=== PATIENT | male | born 1980 | race Native Hawaiian/Other Pacific Islander ===

== ENCOUNTER 2022-03-06 17:03 | Outpatient (CLI) | payer OTHER | END 2022-03-06 19:12 | disposition home or self-care (01) | LOC: RAD 17:03 | PROVIDERS: ATTEND Nurse Practitioner Primary Care | DX: M25.511 Pain in right shoulder (principal) ==

== ENCOUNTER 2022-12-24 13:48 | Emergency (ER) | payer OTHER ==
[~2022-12-24] VITALS: Ht 160 cm; Wt 81.6 kg
[2022-12-24 13:55] VITALS: BP 108/92; TEMP 97.9
== END 2022-12-24 14:48 | disposition home or self-care (01) ==
LOC: ED 13:48
DX: L60.0 Ingrowing nail (principal)
CPT/HCPCS: 99282